=== PATIENT | male | born 1965 ===

== ENCOUNTER → 2016-11-12 | Outpatient (CLI) | payer OTHER ==
[2016-11-12 18:18] LABS: BASO % 0.5 %; BASO ABS # 0.07 K/uL (0-0.2); COMPLETE YES; EOS % 4.5 %; HEMATOCRIT 39.6 % (42-52); IG% 0.2 %; LYMPH % 16.2 %; LYMPH ABS # 2.07 K/uL (1.2-3.4); MEAN CELL VOLUME 90.4 fL (80-100); MEAN CORPUSCULAR HEMOGLOBIN 29.7 pg (25-34); MEAN CORPUSCULAR HGB CONC 32.8 g/dl (32-36); MEAN PLATELET VOLUME 10.8 fL (7.4-10.4); MONO % 5.5 %; NEUT % 73.1 %; PLATELET COUNT 529 K/uL (130-400); RED BLOOD COUNT 4.38 M/uL (4.7-6.1)
[2016-11-12 18:43] LABS: ALB/GLOB RATIO 0.6 (0.9-2); ALKALINE PHOSPHATASE 313 U/L (45-117); ALT/SGPT 21 U/L (12-78); AST/SGOT 21 U/L (15-37); BLOOD UREA NITROGEN 22 mg/dl (7-18); BUN/CREATININE RATIO 23.2 (10-20); CALCIUM 9.4 mg/dl (8.5-10.1)
[2016-11-12 18:44] LABS: CARBON DIOXIDE 32 mmol/L (21-32); CHLORIDE 94 mmol/L (98-107); CHOLESTEROL 194 mg/dl (0-200); CHOLESTEROL/HDL RATIO 4.2; CREATININE 0.97 mg/dl (0.60-1.40); HDL CHOLESTEROL 46 mg/dl; LDL CHOLESTEROL CALCULATED 107 mg/dl; MAGNESIUM 1.9 mg/dl (1.8-2.4); POTASSIUM 5.2 mmol/L (3.5-5.1); SODIUM 131 mmol/L (136-145); TRIGLYCERIDES 204 mg/dl (0-150); VERY LOW DENSITY LIPOPROT CALC 41 mg/dl
[2016-11-12 18:53] LABS: GLUCOSE 454 mg/dl (70-99)
[2016-11-12 19:11] LABS: BETA-HYDROXYBUTYRATE 1.01 mg/dL (0.2-2.81)
[2016-11-13 06:59] LABS: ESTIMATED AVERAGE GLUCOSE 421 mg/dl; HA1C FLAG Normal (Normal)
== END | disposition home or self-care (01) ==
LOC: C.LABSPEC 17:55
PROVIDERS: ATTEND Family Medicine
DX: E78.2 Mixed hyperlipidemia (principal); E11.9 Type 2 diabetes mellitus without complications; I10 Essential (primary) hypertension

== ENCOUNTER → 2016-12-06 | Outpatient (CLI) | payer OTHER | END | disposition home or self-care (01) | LOC: C.LABSPEC 14:13 | PROVIDERS: ATTEND Urology | DX: N39.0 Urinary tract infection, site not specified (principal) ==

== ENCOUNTER → 2017-07-15 | Outpatient (CLI) | payer OTHER ==
[2017-07-15 19:10] LABS: BASO % 0.9 %; EOS % 3.9 %; EOS ABS # 0.42 K/uL (0-0.5); HEMATOCRIT 35.1 % (42-52); HEMOGLOBIN 11.8 g/dL (14.0-18.0); IG# 0.02 K/uL (0.00-0.02); LYMPH % 19.6 %; LYMPH ABS # 2.13 K/uL (1.2-3.4); MEAN CELL VOLUME 91.9 fL (80-100); MEAN CORPUSCULAR HEMOGLOBIN 30.9 pg (25-34); MEAN CORPUSCULAR HGB CONC 33.6 g/dl (32-36); MEAN PLATELET VOLUME 11.4 fL (7.4-10.4); MONO % 9.1 %; MONO ABS # 0.99 K/uL (0.11-0.59); NEUT % 66.3 %; NEUT ABS # 7.22 K/uL (1.4-6.5); PLATELET COUNT 438 K/uL (130-400); RED CELL DISTRIBUTION WIDTH CV 14.8 % (11.5-14.5); RED CELL DISTRIBUTION WIDTH SD 50.1 fL (36.4-46.3); WHITE BLOOD COUNT 10.88 K/uL (4.8-10.8)
[2017-07-15 19:20] LABS: ALBUMIN 2.8 gm/dl (3.4-5.0); ALT/SGPT 23 U/L (12-78); AST/SGOT 21 U/L (15-37); BLOOD UREA NITROGEN 24 mg/dl (7-18); CALCIUM 9.3 mg/dl (8.5-10.1); CARBON DIOXIDE 31 mmol/L (21-32); CHOLESTEROL 173 mg/dl (0-200); CREATININE 0.95 mg/dl (0.60-1.40); GLUCOSE 318 mg/dl (70-99); POTASSIUM 5.4 mmol/L (3.5-5.1); SODIUM 132 mmol/L (136-145)
[2017-07-15 19:23] LABS: ALKALINE PHOSPHATASE 293 U/L (45-117); LDL CHOLESTEROL CALCULATED 105 mg/dl; TOTAL PROTEIN 8.1 gm/dl (6.4-8.2)
[2017-07-16 07:17] LABS: HEMOGLOBIN A1C 16.1 % (4.5-5.6)
== END | disposition home or self-care (01) ==
LOC: C.LABSPEC 17:53
PROVIDERS: ATTEND Family Medicine
DX: E78.2 Mixed hyperlipidemia (principal); E11.9 Type 2 diabetes mellitus without complications

== ENCOUNTER → 2018-01-12 | Outpatient (CLI) | payer OTHER ==
[2018-01-12 16:12] LABS: HEMOGLOBIN 10.1 g/dL (14.0-18.0); MEAN CELL VOLUME 91.4 fL (80-100); MEAN CORPUSCULAR HEMOGLOBIN 29.8 pg (25-34); MEAN CORPUSCULAR HGB CONC 32.6 g/dl (32-36); MEAN PLATELET VOLUME 11.5 fL (7.4-10.4); PLATELET COUNT 586 K/uL (130-400); RED CELL DISTRIBUTION WIDTH CV 14.8 % (11.5-14.5); RED CELL DISTRIBUTION WIDTH SD 49.3 fL (36.4-46.3); WHITE BLOOD COUNT 29.87 K/uL (4.8-10.8)
[2018-01-12 16:42] LABS: ALBUMIN 2.7 gm/dl (3.4-5.0); ALKALINE PHOSPHATASE 927 U/L (45-117); ALT/SGPT 52 U/L (12-78); AST/SGOT 37 U/L (15-37); BLOOD UREA NITROGEN 32 mg/dl (7-18); CALCIUM 9.7 mg/dl (8.5-10.1); CARBON DIOXIDE 30 mmol/L (21-32); CHOLESTEROL 182 mg/dl (0-200); CREATININE 1.51 mg/dl (0.60-1.40); GLUCOSE 618 mg/dl (70-99); LDL CHOLESTEROL CALCULATED 123 mg/dl; POTASSIUM 5.3 mmol/L (3.5-5.1); SODIUM 127 mmol/L (136-145)
[2018-01-12 17:57] LABS: BASO % 0.1 %; BASO ABS # 0.03 K/uL (0-0.2); EOS ABS # 0.01 K/uL (0-0.5); IG# 0.16 K/uL (0.00-0.02); LYMPH % 6.6 %; LYMPH ABS # 1.97 K/uL (1.2-3.4); MONO % 5.3 %; MONO ABS # 1.59 K/uL (0.11-0.59); NEUT % 87.5 %; NEUT ABS # 26.11 K/uL (1.4-6.5)
[2018-01-13 06:46] LABS: HEMOGLOBIN A1C 13.6 % (4.5-5.6)
== END | disposition home or self-care (01) ==
LOC: C.LABSPEC 14:56
PROVIDERS: ATTEND Family Medicine
DX: E11.9 Type 2 diabetes mellitus without complications (principal); E78.2 Mixed hyperlipidemia; I10 Essential (primary) hypertension